=== PATIENT | female | born 1990 | race Caucasian/White ===

== ENCOUNTER 2021-03-09 16:17 | Emergency (ER) | payer BC, OTHER ==
[2021-03-09] MEDS ORDERED: DIPHTH,PERTUSS(ACELL),TET 0.5 ML DISP.SYRIN IM ONE ×2 (16:44→16:54)
[2021-03-09 16:48] VITALS: BP 122/71; PULSE 105; TEMP 98.3; BMI 19.5
[2021-03-09] MEDS ORDERED: LIDO 2%/EPI 1:200000 PRESRVFRE (20 ML SDVIAL) ONE (17:12)
== END 2021-03-09 18:10 | disposition home or self-care (01) ==
LOC: EDBD 16:17 → FER 16:17
PROC: 3E0234Z Introduction of Serum, Toxoid and Vaccine into Muscle, Percutaneous Approach (ICD-10-PCS; principal; 2021-03-09)
DX: S81.812A Laceration without foreign body, left lower leg, initial encounter (principal)
CPT/HCPCS: 90715; 99284-25

== ENCOUNTER 2021-03-20 10:30 | Emergency (ER) | payer BC ==
[2021-03-20 10:36] VITALS: BP 110/74; PULSE 70; TEMP 98.2; BMI 19.5
== END 2021-03-20 11:12 | disposition home or self-care (01) ==
LOC: FER 10:30
DX: Z48.02 Encounter for removal of sutures (principal)
CPT/HCPCS: 99281-25